=== PATIENT | male | born 1980 | race Caucasian/White ===

== ENCOUNTER 2024-04-05 12:32 | Emergency (ER) | payer BC ==
[2024-04-05] MEDS: Ondansetron 4 MG/2 ML SDV IVPUSH ONE (12:53)
[2024-04-05] MEDS: Ketorolac 30 MG/ML SDV IVPUSH ONE (12:54)
[2024-04-05] MEDS: Sodium Chloride 0.9% 1,000 ML IV ONE ×2 (12:54→14:00)
[2024-04-05] MEDS: Sodium Chloride 0.9% 10 ML Syringe FLUSH PRN (12:55)
[2024-04-05] MEDS: Tamsulosin 0.4 MG Cap.ER PO ONE (13:03)
[2024-04-05 13:14] LABS: BASOPHILS ABSOLUTE AUTO 0.03 K/uL (0.00-0.20); BASOPHILS PERCENT AUTO 0.3 % (0.0-2.0); EOSINOPHILS ABSOLUTE AUTO 0.07 K/uL (0.00-0.50); EOSINOPHILS PERCENT AUTO 0.8 % (0.0-5.0); HEMATOCRIT 40.7 % (39.0-49.0); IMMATURE GRAN ABSOLUTE AUTO 0.02 10^3/uL (0.00-0.04); IMMATURE GRAN PERCENT AUTO 0.2 % (0.0-0.4); LYMPHOCYTES ABSOLUTE AUTO 1.51 K/uL (0.50-3.50); LYMPHOCYTES PERCENT AUTO 17.2 % (10.0-50.0); MEAN CORPUSCULAR HEMOGLOBIN 30.8 pg (28.2-33.3); MEAN CORPUSCULAR HGB CONC 34.4 g/dL (31.7-36.0); MEAN CORPUSCULAR VOLUME 89.5 fL (84.0-98.0); MONOCYTES PERCENT AUTO 9.1 % (2.0-14.0); NEUTROPHILS ABSOLUTE AUTO 6.33 K/uL (1.40-7.00); NEUTROPHILS PERCENT AUTO 72.4 % (45.0-80.0); PLATELET COUNT,PLT 255 K/uL (150-350); RED BLOOD CELL COUNT 4.55 M/uL (4.33-5.41); RED CELL DISTRIBUTION WIDTH 12.3 % (11.2-14.1); WHITE BLOOD CELL COUNT,WBC 8.8 K/uL (4.0-10.2)
[2024-04-05 13:30] LABS: ALBUMIN 3.2 g/dL (3.4-5.0); ANION GAP 7.2 meq/L (7-15); BILIRUBIN TOTAL 0.6 mg/dL (0.2-1.0); CALCIUM 8.1 mg/dL (8.5-10.1); CARBON DIOXIDE,CO2 26.8 mmol/L (21.0-32.0); CREATININE 1.59 mg/dL (0.51-1.17); EST CRCL DRUG DOSING (CG) 69.38 mL/min; POTASSIUM,K 3.8 mmol/L (3.5-5.1)
[2024-04-05] MEDS ORDERED: Naloxone 0.4 MG/ML SDV IVPUSH PRN (14:43)
[2024-04-05] MEDS: HYDROmorphone 0.5 MG/0.5 ML Syringe IVPUSH ONE (14:56)
[2024-04-05] MEDS: Lactated Ringers 1,000 ML IV ONE (14:58)
[2024-04-05] MEDS: Take Home: Ondansetron 4 MG Tab.DIS, 5 Tab Pack PO ONE (17:31)
[2024-04-05] MEDS: Take Home: Ketorolac 10 MG Tab, 4 Tab Pack PO ONE (17:31)
[2024-04-05] MEDS: Take Home: oxyCODONE HCl 5 MG Tab, 5 Tab Pack PO ONE (17:31)
[2024-04-05] MEDS: Take Home: Tamsulosin HCl 0.4 MG, 6 Cap Pack PO ONE (17:31)
[2024-04-06 07:59] LABS: APPEARANCE,URINE CLEAR; BILIRUBIN,URINE NEGATIVE (NEGATIVE); COLOR,URINE YELLOW; GLUCOSE,URINE NEGATIVE (NEGATIVE); KETONES,URINE NEGATIVE (NEGATIVE); LEUKOCYTE ESTERASE,URINE NEGATIVE (NEGATIVE); NITRITE,URINE NEGATIVE (NEGATIVE); OCCULT BLOOD,URINE NEGATIVE (NEGATIVE); PROTEIN,URINE NEGATIVE (NEGATIVE); UROBILINOGEN,URINE 0.2 E.U./dL (0.2-1.0)
== END 2024-04-05 17:41 | disposition home or self-care (01) ==
LOC: LL.ED 12:32
DX: N23 Unspecified renal colic (principal); I10 Essential (primary) hypertension; Z79.899 Other long term (current) drug therapy
CPT/HCPCS: 36415; 80053; 81003; 85025; 96361; 96374; 96375; 99284; 99284-25; A9270-GY; J1885; J2405; J7030; J7120; Q0162